=== PATIENT | female | born 1955 | race Caucasian/White ===

== ENCOUNTER 2018-08-21 12:27 | Emergency (ER) | payer MEDICARE, BC ==
[2018-08-21] MEDS ORDERED: Sodium Chloride 0.9% 2.5 ML Syringe FLUSH PRN (12:57)
[2018-08-21] MEDS ORDERED: Sodium Chloride 0.9% 10 ML Syringe FLUSH PRN (12:57)
--- NOTE | 2018-08-21 13:07 | EDM.PDOC ---
ED HPI GENERAL MEDICAL PROBLEM - General Chief Complaint: Cardiovascular Problem Stated Complaint: HIGH BLOOD PRESSURE ISSUE Time Seen by Provider: 08/21/18 12:56 Source of Information: Reports: Patient History Limitations: Reports: No Limitations - History of Present Illness INITIAL COMMENTS - FREE TEXT/NARRATIVE: HISTORY AND PHYSICAL: History of present illness: Patient is a 63-year-old female here with complaint of hypotension. She states she has not been feeling well the last 3 days has had a headache on and off. She reports that she took her blood pressure this morning and it was 195/120. She took an extra dose of one of her blood pressure medications, is currently on lisinopril, metoprolol, and amlodipine. She states after taking her blood pressure she was feeling a little short of breath but admits that she was very anxious. She denies any chest pain, shortness of breath, headache or nausea, vomiting, diarrhea, abdominal pain, urinary symptoms at this time. Review of systems: As per history of present illness and below otherwise all systems reviewed and negative. Past medical history: As per history of present illness and as reviewed below otherwise noncontributory. Surgical history: As per history of present illness and as reviewed below otherwise noncontributory. Social history: No reported history of drug or alcohol abuse. Family history: As per history of present illness and as reviewed below otherwise noncontributory. Physical exam: General: Patient anxious appearing but sitting comfortably in no acute distress and nontoxic appearing HEENT: Atraumatic, normocephalic, pupils reactive, negative for conjunctival pallor or scleral icterus, mucous membranes moist, throat clear, neck supple, nontender, trachea midline. No meningeal signs. Lungs: Clear to auscultation, breath sounds equal bilaterally, chest nontender. Heart: S1S2, regular, negative for clicks, rubs, or overt murmur. Abdomen: Soft, nondistended, nontender. Negative for masses or hepatosplenomegaly. Negative for costovertebral tenderness. Pelvis: Stable nontender. Genitourinary: Deferred. Rectal: Deferred. Extremities: Atraumatic, negative for cords or calf pain. Neurovascular unremarkable. Neuro: Awake, alert, oriented. Cranial nerves II through XII unremarkable. Cerebellum unremarkable. Motor and sensory unremarkable throughout. Exam nonfocal. Notes: 1410 - BP 122/66 after labetolol. She states she is feeling much better and no headache. Diagnostics: CBC, CMP, troponin, EKG, UA Therapeutics: Labetolol 20mg IV Prescriptions: None Impression: Hypertension Plan: 1. Continue BP medication as discussed 2. Follow up with primary care provider, please call to schedule an appointment Thursday. 3. Return to ED as needed as discussed Definitive disposition and diagnosis as appropriate pending reevaluation and review of above. headache Pain Score (Numeric/FACES): 2 - Related Data Allergies Allergy/AdvReac Type Severity Reaction Status Date / Time No Known Allergies Allergy Verified 03/10/14 10:35 Home Meds: Home Meds Aspirin [Adult Low Dose Aspirin EC] 81 mg PO DAILY 09/11/15 [History] Dextroamphetamine/Amphetamine [Dextroamp-Amphet ER] 30 mg PO BID 09/11/15 [ History] Empagliflozin/Linagliptin [Glyxambi 25 mg-5 mg Tablet] 1 tab PO DAILY 09/11/15 [ History] Furosemide [Lasix] 40 mg PO DAILY PRN 09/11/15 [History] Metoprolol Tartrate 50 mg PO BID 09/11/15 [History] amLODIPine [Norvasc] 5 mg PO DAILY 09/11/15 [History] atorvaSTATin [Lipitor] 20 mg PO DAILY 09/11/15 [History] metFORMIN HCl [Metformin HCl] 500 mg PO BIDMEALS 09/11/15 [History] Albuterol [Ventolin HFA] 1 - 2 puff INH Q4H PRN 09/13/15 [History] Estrogens, Conjugated [Premarin Vaginal Crm] 1 applic VAG ASDIRECTED 09/13/15 [ History] Lisinopril 40 mg PO DAILY 09/13/15 [History] oxyCODONE HCl/Acetaminophen [Percocet 7.5-325 mg Tablet] 1 each PO Q4H PRN #30 tablet 09/14/15 [Rx] Past Medical History HEENT History: Reports: Cataract Cardiovascular History: Reports: High Cholesterol, Hypertension Respiratory History: Reports: Asthma Other Respiratory History: occas uses inhaler Gastrointestinal History: Reports: GERD Other Gastrointestinal History: takes prolesac for heartburn Genitourinary History: Reports: UTI, Recurrent 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: hx of toxemia during Musculoskeletal History: Reports: Back Pain, Chronic, Fracture Other Musculoskeletal History: right ankle fx, states back pain is from pelvic organ prolapse Neurological History: Reports: Other (See Below) Other Neuro History: Narcolepsy Endocrine/Metabolic History: Reports: Diabetes, Type II, Obesity/BMI 30+ Dermatologic History: Reports: Other (See Below) Other Dermatologic History: has dark patches on skin - Infectious Disease History Infectious Disease History: Reports: Chicken Pox, Influenza - Past Surgical History HEENT Surgical History: Reports: Cataract Surgery GI Surgical History: Reports: EGD, Hernia, Abdominal Female Surgical History: Reports: Section, Hysterectomy, Salpingo- Oophorectomy, Other (See Below) Musculoskeletal Surgical History: Reports: Shoulder Surgery Social & Family History - Family History Cardiac: Reports: High Cholesterol, Hypertension OBGYN: Reports: Endocrine/Metabolic: Reports: Diabetes, type II ED ROS GENERAL - Review of Systems Review Of Systems: ROS reveals no pertinent complaints other than HPI. ED EXAM, GENERAL - Physical Exam Exam: See Below (See dictation) Course - Vital Signs Last Recorded V/S: Last Vital Signs Temp 97.9 F 08/21/18 14:09 Pulse 77 08/21/18 14:09 Resp 14 08/21/18 14:09 BP 122/63 08/21/18 14:09 Pulse Ox 94 L 08/21/18 14:09 - Orders/Labs/Meds Orders: Active Orders 24 hr Category Date Time Status EKG Documentation Completion [RC] STAT Care 08/21/18 12:57 Active COMPREHENSIVE METABOLIC PN,CMP [CHEM] Stat Lab 08/21/18 13:35 Received TROPONIN I [CHEM] Stat Lab 08/21/18 13:35 Received UA RFX CORDELIA AND CULT IF INDIC [URIN] Stat Lab 08/21/18 12:57 Ordered Sodium Chloride 0.9% [Saline Flush] Med 08/21/18 12:57 Active 10 ml FLUSH ASDIRECTED PRN Sodium Chloride 0.9% [Saline Flush] Med 08/21/18 12:57 Active 2.5 ml FLUSH ASDIRECTED PRN Saline Lock Insert [OM.PC] Stat Oth 08/21/18 12:57 Ordered Medication Orders Sodium Chloride (Saline Flush) 10 ml FLUSH ASDIRECTED PRN PRN Reason: Keep Vein Open Sodium Chloride (Saline Flush) 2.5 ml FLUSH ASDIRECTED PRN PRN Reason: Keep Vein Open Labs: Laboratory Tests 08/21/18 Range/Units 13:35 WBC 8.71 (4.0-11.0) K/uL RBC 4.69 (4.30-5.90) M/uL Hgb 15.2 (12.0-16.0) g/dL Hct 45.0 (36.0-46.0) % MCV 95.9 (80.0-98.0) fL MCH 32.4 H (27.0-32.0) pg MCHC 33.8 (31.0-37.0) g/dL RDW Std Deviation 47.2 (28.0-62.0) fl RDW Coeff of Chen 14 (11.0-15.0) % Plt Count 242 (150-400) K/uL MPV 10.40 (7.40-12.00) fL Neut % (Auto) 71.0 (48.0-80.0) % Lymph % (Auto) 17.7 (16.0-40.0) % [place] % (Auto) 8.4 (0.0-15.0) % Eos % (Auto) 2.1 (0.0-7.0) % Baso % (Auto) 0.8 (0.0-1.5) % Neut # (Auto) 6.2 H (1.4-5.7) K/uL Lymph # (Auto) 1.5 (0.6-2.4) K/uL [place] # (Auto) 0.7 (0.0-0.8) K/uL Eos # (Auto) 0.2 (0.0-0.7) K/uL Baso # (Auto) 0.1 (0.0-0.1) K/uL Nucleated RBC % 0.0 /100WBC Nucleated RBCs # 0 K/uL Meds: Medications Generic Name Dose Route Start Last Admin Trade Name Freq PRN Reason Stop Dose Admin Sodium Chloride 10 ml 08/21/18 12:57 Saline Flush FLUSH ASDIRECTED PRN Keep Vein Open Sodium Chloride 2.5 ml 08/21/18 12:57 Saline Flush FLUSH ASDIRECTED PRN Keep Vein Open Discontinued Medications Generic Name Dose Route Start Last Admin Trade Name Freq PRN Reason Stop Dose Admin Labetalol HCl 20 mg 08/21/18 13:21 08/21/18 13:33 Normodyne IVPUSH 08/21/18 13:22 20 mg NOW ONE Administration Protocol Departure - Departure Time of Disposition: 14:20 Disposition: Home, Self-Care 01 Condition: Good Clinical Impression: Hypertension Referrals: PCP,None [Primary Care Provider] - Forms: ED Department Discharge Additional Instructions: The following information is given to patients seen in the emergency department who are being discharged to home. This information is to outline your options for follow-up care. We provide all patients seen in our emergency department with a follow-up referral. The need for follow-up, as well as the timing and circumstances, are variable depending upon the specifics of your emergency department visit. If you don't have a primary care physician on staff, we will provide you with a referral. We always advise you to contact your personal physician following an emergency department visit to inform them of the circumstance of the visit and for follow-up with them and/or the need for any referrals to a consulting specialist. The emergency department will also refer you to a specialist when appropriate. This referral assures that you have the opportunity for follow-up care with a specialist. All of these measure are taken in an effort to provide you with optimal care, which includes your follow-up. Under all circumstances we always encourage you to contact your private physician who remains a resource for coordinating your care. When calling for follow-up care, please make the office aware that this follow-up is from your recent emergency room visit. If for any reason you are refused follow-up, please contact the [facility] Emergency Department at and asked to speak to the emergency department charge nurse. [facility] Primary [facility] [address] [place] [id number] 1. Continue BP medication as discussed 2. Follow up with primary care provider, please call to schedule an appointment Thursday morning. 3. Return to ED as needed as discussed - My Orders Last 24 Hours: My Active Orders 08/21/18 12:57 EKG Documentation Completion [RC] STAT UA RFX CORDELIA AND CULT IF INDIC [URIN] Stat Sodium Chloride 0.9% [Saline Flush] 10 ml FLUSH ASDIRECTED PRN Sodium Chloride 0.9% [Saline Flush] 2.5 ml FLUSH ASDIRECTED PRN Saline Lock Insert [OM.PC] Stat 08/21/18 13:35 COMPREHENSIVE METABOLIC PN,CMP [CHEM] Stat TROPONIN I [CHEM] Stat - Assessment/Plan Last 24 Hours: My Active Orders 08/21/18 12:57 EKG Documentation Completion [RC] STAT UA RFX CORDELIA AND CULT IF INDIC [URIN] Stat Sodium Chloride 0.9% [Saline Flush] 10 ml FLUSH ASDIRECTED PRN Sodium Chloride 0.9% [Saline Flush] 2.5 ml FLUSH ASDIRECTED PRN Saline Lock Insert [OM.PC] Stat 08/21/18 13:35 COMPREHENSIVE METABOLIC PN,CMP [CHEM] Stat TROPONIN I [CHEM] Stat
[2018-08-21] MEDS ORDERED: Labetalol 20 MG/4 ML Syringe IVPUSH ONE (13:21)
[2018-08-21 14:11] VITALS: BP 122/63
[2018-08-21 14:32] LABS: CHLORIDE,CL 103 mmol/L (98-107); SODIUM,NA 139 mmol/L (136-145)
== END 2018-08-21 14:40 | disposition home or self-care (01) ==
LOC: MW.ED 12:27
DX: I10 Essential (primary) hypertension (principal); E11.9 Type 2 diabetes mellitus without complications; E66.9 Obesity, unspecified
CPT/HCPCS: 36415; 80053; 84484; 85025; 93005; 96374; 99284; J3490; 99283

== ENCOUNTER 2019-06-16 11:19 | Day surgery (SDC) | payer MEDICARE, BC ==
[~2019-06-16 11:19] MED LIST: Lactated Ringers 1,000 ML IV SCH; Sodium Chloride 0.9% 10 ML SDV IV PRN; Sodium Chloride 0.9% 10 ML Syringe FLUSH PRN; Sodium Chloride 0.9% 2.5 ML Syringe FLUSH PRN
--- NOTE | 2019-06-16 12:00 | PCM.PREANE ---
Preanesthetic Assessment - Anesthesia/Transfusion/Family Hx Anesthesia History: Prior Anesthesia Without Reaction Family History of Anesthesia Reaction: No Transfusion History: No Prior Transfusion(s) Intubation History: Unknown - Review of Systems General: No Symptoms Pulmonary: No Symptoms Cardiovascular: No Symptoms Gastrointestinal: No Symptoms, Other (h/o colon polyps '05, screening colonoscopy) Neurological: No Symptoms Other: Reports: None - Physical Assessment Height: 5 ft 7 in Weight: 98.883 kg ASA Class: 3 Mental Status: Alert & Oriented x3 Airway Class: Mallampati = 2 Dentition: Reports: Normal Dentition Thyro-Mental Finger Breadths: 3 Mouth Opening Finger Breadths: 3 ROM/Head Extension: Full Lungs: Clear to Auscultation, Normal Respiratory Effort Cardiovascular: Regular Rate, Regular Rhythm - Allergies Allergies/Adverse Reactions: Allergies Allergy/AdvReac Type Severity Reaction Status Date / Time tramadol Allergy Nausea and Verified 06/13/19 15:41 Vomiting - Blood Blood Available: No - Anesthesia Plan Pre-Op Medication Ordered: None - Acknowledgements Anesthesia Type Planned: MAC Pt an Appropriate Candidate for the Planned Anesthesia: Yes Alternatives and Risks of Anesthesia Discussed w Pt/Guardian: Yes Pt/Guardian Understands and Agrees with Anesthesia Plan: Yes PreAnesthesia Questionnaire HEENT History: Reports: Cataract Cardiovascular History: Reports: High Cholesterol, Hypertension Respiratory History: Reports: Asthma Other Respiratory History: has not used inhalers for many years Gastrointestinal History: Reports: Colon Polyp, GERD Other Gastrointestinal History: takes prolesac for heartburn Genitourinary History: Reports: UTI, Recurrent DIRECTOR OF CRITICAL CARE History: Reports: Other OB/BYN History: hx of toxemia during Musculoskeletal History: Reports: Fracture, Gout Other Musculoskeletal History: hx fx right ankle Neurological History: Reports: Other (See Below) Other Neuro History: Narcolepsy Psychiatric History: Reports: ADD, Depression, Other (See Below) Other Psychiatric History: Narcolepsy Endocrine/Metabolic History: Reports: Diabetes, Type II, Hypothyroidism, Obesity /BMI 30+ Dermatologic History: Reports: Other (See Below) Other Dermatologic History: has dark patches on skin - Infectious Disease History Infectious Disease History: Reports: Chicken Pox, Influenza - Past Surgical History Head Surgeries/Procedures: Reports: None HEENT Surgical History: Reports: Cataract Surgery GI Surgical History: Reports: Colonoscopy, Hernia, Inguinal Female Surgical History: Reports: Section, Hysterectomy, Salpingo- Oophorectomy, Tubal Ligation, Other (See Below) Other Female Surgeries/Procedures: bladder neck suspension Musculoskeletal Surgical History: Reports: Other (See Below) Other Musculoskeletal Surgeries/Procedures:: left TSA, hx of Tarsal Tunnel release- right - SUBSTANCE USE Smoking Status *Q: Former Smoker Tobacco Use Within Last Twelve Months: No Recreational Drug Use History: No - HOME MEDS Home Medications: Home Meds Aspirin [Adult Low Dose Aspirin EC] 81 mg PO DAILY 09/11/15 [History] Dextroamphetamine/Amphetamine [Dextroamp-Amphet ER] 30 mg PO BID 09/11/15 [ History] Furosemide [Lasix] 40 mg PO DAILY PRN 09/11/15 [History] amLODIPine [Norvasc] 5 mg PO BEDTIME 09/11/15 [History] atorvaSTATin [Lipitor] 20 mg PO DAILY 09/11/15 [History] metFORMIN HCl [Metformin HCl] 500 mg PO BIDMEALS 09/11/15 [History] Estrogens, Conjugated [Premarin Vaginal Crm] 1 applic VAG DAILY 09/13/15 [ History] Lisinopril 40 mg PO DAILY 09/13/15 [History] DULoxetine HCl [Cymbalta] 30 mg PO DAILY 06/13/19 [History] Empagliflozin [Jardiance] 25 mg PO ACBREAKFAST 06/13/19 [History] Levothyroxine Sodium [Euthyrox] 50 mg PO QAM 06/13/19 [History] Metoprolol Succinate 100 mg PO QAM 06/13/19 [History] Omeprazole Magnesium [Prilosec Otc] 20 mg PO DAILY 06/13/19 [History] cloNIDine [Catapres] 0.1 mg PO BID 06/13/19 [History] - CURRENT (IN HOUSE) MEDS Current Meds: Current Medications Lactated Ringer's (Ringers, Lactated) 1,000 mls @ 125 mls/hr IV ASDIRECTED LD Sodium Chloride (Saline Flush) 10 ml FLUSH ASDIRECTED PRN PRN Reason: Keep Vein Open Sodium Chloride (Saline Flush) 2.5 ml FLUSH ASDIRECTED PRN PRN Reason: Keep Vein Open Sodium Chloride (Saline Flush) 10 ml FLUSH ASDIRECTED PRN PRN Reason: Keep Vein Open Sodium Chloride (Saline Flush) 2.5 ml FLUSH ASDIRECTED PRN PRN Reason: Keep Vein Open Sodium Chloride (Normal Saline) 10 ml IV ASDIRECTED PRN PRN Reason: IV Use
[2019-06-16] MEDS ORDERED: Lidocaine 2% 5 ML SDV ONE (13:03)
[2019-06-16] MEDS ORDERED: Propofol 200 MG/20 ML SDV ONE (13:03)
[2019-06-16 14:29] VITALS: BP 113/70; PULSE 62
--- NOTE | 2019-06-16 14:29 | PCM.POSTAN ---
POST ANESTHESIA ASSESSMENT - MENTAL STATUS Mental Status: Alert, Oriented - VITAL SIGNS Vital Signs: Last Vital Signs Temp 37.4 C 06/16/19 14:18 Pulse 66 06/16/19 14:23 Resp 14 06/16/19 14:23 BP 101/47 L 06/16/19 14:23 Pulse Ox 95 06/16/19 14:23 - RESPIRATORY Respiratory Status: Respiratory Rate WNL, Airway Patent, O2 Saturation Stable - CARDIOVASCULAR CV Status: Pulse Rate WNL, Blood Pressure Stable - GASTROINTESTINAL GI Status: No Symptoms - PAIN Pain Score: 0 - POST OP HYDRATION Hydration Status: Adequate & Stable - OBSERVATIONS Free Text/Narrative:: no anesthesia problems
--- NOTE | 2019-06-16 14:31 | PCM.OPNOTE ---
- General Post-Op/Procedure Note Date of Surgery/Procedure: 06/16/19 Operative Procedure(s): Screening colonoscopy Findings: Diverticulosis in sigmoid colon Pre Op Diagnosis: History of colon polyps Post-Op Diagnosis: diverticulosis Anesthesia Technique: GABRIELLA Primary Surgeon: Kayla Mack Condition: Good
--- NOTE | 2019-06-16 14:59 | PCM48HPAN ---
Post Anesthesia Note - EVALUATION WITHIN 48HRS OF ANESTHETIC Vital Signs in Normal Range: Yes Patient Participated in Evaluation: Yes Respiratory Function Stable: Yes Airway Patent: Yes Cardiovascular Function Stable: Yes Hydration Status Stable: Yes Pain Control Satisfactory: Yes Nausea and Vomiting Control Satisfactory: Yes Mental Status Recovered: Yes Vital Signs: Last Vital Signs Temp 37.4 C 06/16/19 14:18 Pulse 62 06/16/19 14:28 Resp 16 06/16/19 14:28 BP 113/70 06/16/19 14:28 Pulse Ox 95 06/16/19 14:28 - COMMENTS/OBSERVATIONS Free Text/Narrative:: no anesthesia problems
--- NOTE | 2019-06-16 15:44 | OR ---
SURGEON: KAYLA MACK MD DATE OF PROCEDURE: 06/16/2019 PREOPERATIVE DIAGNOSIS: History of colon polyps. POSTOPERATIVE DIAGNOSIS: Diverticulosis. PROCEDURE PERFORMED: Screening colonoscopy. PRIMARY SURGEON: Kayla Mack MD. ANESTHESIA: MAC. INSTRUMENT USED: Olympus colonoscope. EXTENT OF EXAM: To the cecum. PREPARATION: Good. LIMITATIONS: None. INDICATION FOR EXAMINATION: The patient is a 64-year-old female who is overdue for repeat colonoscopy. Her last one was in 2006 and she was found at that time to have colon polyps. The patient and I discussed the procedure, expected perioperative course, and risks including bleeding, infection, or damage to surrounding structures including perforation. The patient verbalized understanding and wishes to proceed. PROCEDURE IN DETAIL: The patient was brought into the endoscopy suite and placed in the left lateral decubitus position. A time-out was completed verifying the patient's name, age, date of , allergies, and procedure to be performed. Monitored anesthesia care was induced and continuous oxygen was provided via nasal cannula throughout the procedure. After adequate sedation was achieved, a digital rectal exam was performed. This exam was within normal limits. A well-lubricated colonoscope was inserted in the rectum and advanced under direct visualization to the level of the cecum. The cecum was identified by both visual and anatomic landmarks. A photograph was taken of the cecal cap; however, I was unable to retroflex the scope within the cecum due to looping of the scope more proximally. The scope was then fully withdrawn while examining the color, texture, anatomy, and integrity of the mucosa from the cecum to the anal canal. A photograph was taken of the terminal ileum. The patient had scattered diverticula within the sigmoid colon. No polyps were identified. The scope was then brought into the rectum and retroflexed to allow visualization of the anal canal opening. This appeared normal and a photograph was taken. The scope was then straightened out and fully withdrawn. The cecum to anus time was 9 minutes. The patient tolerated the procedure well and was transferred to the PACU in stable condition. ENDOSCOPIC DIAGNOSIS: Diverticulosis. RECOMMENDATIONS: Follow up in clinic in 2 weeks. NOLA CERVANTES /[id number]
== END 2019-06-16 14:55 | disposition home or self-care (01) ==
LOC: MW.SDS 11:19
PROVIDERS: ATTEND Surgery
DX: Z12.11 Encounter for screening for malignant neoplasm of colon (principal); K57.30 Diverticulosis of large intestine without perforation or abscess without bleeding; E78.5 Hyperlipidemia, unspecified; M10.9 Gout, unspecified; I10 Essential (primary) hypertension; E03.9 Hypothyroidism, unspecified; E11.9 Type 2 diabetes mellitus without complications; K21.9 Gastro-esophageal reflux disease without esophagitis; M19.011 Primary osteoarthritis, right shoulder; J45.909 Unspecified asthma, uncomplicated; F32.9 Major depressive disorder, single episode, unspecified; E66.9 Obesity, unspecified; Z86.010 Personal history of colon polyps; Z88.5 Allergy status to narcotic agent; Z79.899 Other long term (current) drug therapy; Z79.82 Long term (current) use of aspirin; Z79.84 Long term (current) use of oral hypoglycemic drugs; Z87.891 Personal history of nicotine dependence; Z68.33 Body mass index [BMI] 33.0-33.9, adult
CPT/HCPCS: G0121; J2001; J2704; J7120

== ENCOUNTER 2021-10-06 22:11 | Emergency (ER) | payer BC, MEDICARE ==
[2021-10-06] MEDS ORDERED: Iopamidol 755 MG/ML 500 ML Multipack Bottle IVPUSH ONE (22:29)
[2021-10-06 22:53] LABS: BLOOD UREA NITROGEN,BUN 28 mg/dL (7.0-18.0); CARBON DIOXIDE,CO2 26.1 mmol/L (21.0-32.0); CHLORIDE,CL 100 mmol/L (98-107); GLUCOSE RANDOM 132 mg/dL (74-106); POTASSIUM,K 4.2 mmol/L (3.5-5.1); SODIUM,NA 140 mmol/L (136-145)
[2021-10-06 22:54] LABS: ESTIMATED GFR 34.5 ml/min
[2021-10-06] MEDS ORDERED: Ondansetron 4 MG/2 ML SDV IVPUSH ONE (22:56)
[2021-10-06] MEDS ORDERED: Aspirin 81 MG Tab.Chew PO ONE (23:11)
[2021-10-07] MEDS ORDERED: Sodium Chloride 0.9% 1,000 ML IV ONE (00:22)
[2021-10-07] MEDS ORDERED: Sodium Chloride 0.9% 1,000 ML IV SCH (00:30)
[2021-10-07 01:13] VITALS: BP 144/81; PULSE 92
== END 2021-10-07 01:22 ==
LOC: MW.ED 22:11
DX: G45.9 Transient cerebral ischemic attack, unspecified (principal); E78.00 Pure hypercholesterolemia, unspecified; I10 Essential (primary) hypertension; E11.9 Type 2 diabetes mellitus without complications; E03.9 Hypothyroidism, unspecified; K21.9 Gastro-esophageal reflux disease without esophagitis; E66.9 Obesity, unspecified; Z68.30 Body mass index [BMI] 30.0-30.9, adult; Z88.5 Allergy status to narcotic agent; Z79.82 Long term (current) use of aspirin; Z79.899 Other long term (current) drug therapy
CPT/HCPCS: 36415; 70450; 70496; 70498; 71045; 80053; 81001; 82947; 84484; 85025; 93005; 96374; 99285; A9270; J2405; J7030; Q9967; 93010

== ENCOUNTER 2023-05-07 09:45 | Inpatient (IN) | payer MEDICARE ==
[2023-05-07] MEDS ORDERED: Sodium Chloride 0.9% 1,000 ML IV ONE ×2 (10:12→12:33)
[2023-05-07] MEDS ORDERED: Morphine 4 MG/ML Syringe IVPUSH ONE (10:12)
[2023-05-07] MEDS ORDERED: Ondansetron 4 MG/2 ML SDV IVPUSH ONE (10:12)
[2023-05-07 10:17] LABS: HEMATOCRIT 40.3 % (37.0-47.0); MEAN CORPUSCULAR HEMOGLOBIN 34.1 pg (28.0-32.0); MEAN CORPUSCULAR HGB CONC 34.7 g/dL (32.0-36.0); MEAN CORPUSCULAR VOLUME 98.1 fL (83.0-99.0); MEAN PLATELET VOLUME 9.8 fL (9.4-12.3); PLATELET COUNT,PLT 195 K/uL (150-400); RED BLOOD CELL COUNT 4.11 M/uL (4.10-5.30); WHITE BLOOD CELL COUNT,WBC 15.76 K/uL (3.9-11.3)
[2023-05-07 10:41] LABS: APPEARANCE,URINE CLOUDY; GLUCOSE,URINE NEGATIVE (NEGATIVE); KETONES,URINE NEGATIVE (NEGATIVE); LEUKOCYTE ESTERASE,URINE MODERATE (NEGATIVE); NITRITE,URINE NEGATIVE (NEGATIVE); OCCULT BLOOD,URINE SMALL (NEGATIVE); PROTEIN,URINE 100 mg/dL (NEGATIVE); UROBILINOGEN,URINE 0.2 EU/dL (<2.0)
[2023-05-07 10:41] LABS: BAND ABSOLUTE MAN 0.6; BAND PERCENT MAN 4 %; BASOPHILS ABSOLUTE MAN 0.2 (0.0-0.1); BASOPHILS PERCENT MAN 1 % (0.0-1.5); LYMPHOCYTES ABSOLUTE MAN 0.9 (0.6-2.4); LYMPHOCYTES PERCENT MAN 6 % (16.0-40.0); METAMYELOCYTE ABSOLUTE MAN 0.2; METAMYELOCYTE PERCENT MAN 1 %; MONOCYTES ABSOLUTE MAN 0.9 (0.0-0.8); MONOCYTES PERCENT MAN 6 % (0.0-15.0); SEG NEUTROPHILS ABSOLUTE MAN 12.9 (1.4-5.7); SEG NEUTROPHILS PERCENT MAN 82 % (48.0-80.0)
[2023-05-07 10:45] LABS: A/G RATIO 0.8 (0.9-1.6); ALBUMIN 3.4 g/dL (3.4-5.0); BILIRUBIN TOTAL 0.7 mg/dL (0.2-1.0); CALCIUM 9.2 mg/dL (8.5-10.1); CARBON DIOXIDE,CO2 29.3 mmol/L (21.0-32.0); CREATININE 1.2 mg/dL (0.6-1.0); EST CRCL DRUG DOSING (CG) 43.03 mL/min; POTASSIUM,K 3.1 mmol/L (3.5-5.1); PROTEIN TOTAL,TP 7.8 g/dL (6.4-8.2)
[2023-05-07 10:48] LABS: LACTIC ACID 1.5 mmol/L (0.4-2.0)
[2023-05-07 10:51] LABS: BILIRUBIN,URINE SMALL (NEGATIVE); COLOR,URINE YELLOW
[2023-05-07 10:53] LABS: BACTERIA,URINE 1+ (NEGATIVE); EPITHELIAL CELLS,URINE OCCASIONAL (NONE-FEW); WBC,URINE TO NUMEROUS TO COUNT (0-5/HPF)
[2023-05-07] MEDS ORDERED: cefTRIAXone 1 GM in Sodium Chloride 0.9% 50 ML IV ONE (10:58)
[2023-05-07] MEDS ORDERED: Acetaminophen 500 MG Tab PO ONE (11:32)
[2023-05-07] MEDS ORDERED: Iopamidol 755 MG/ML 500 ML Multipack Bottle IVPUSH ONE (11:35)
[2023-05-07] MEDS ORDERED: Potassium Chloride 20 MEQ Tab.ER PO ONE (11:42)
[2023-05-07] MEDS ORDERED: Ketorolac 30 MG/ML SDV IVPUSH ONE (12:33)
[2023-05-07] MEDS ORDERED: Sodium Chloride 0.9% 10 ML Syringe FLUSH PRN (13:30)
[2023-05-07] MEDS ORDERED: Docusate Sodium 100 MG Cap PO PRN (13:30)
[2023-05-07] MEDS ORDERED: Polyethylene Glycol 3350 Powder 17 GM Packet PO PRN (13:30)
[2023-05-07] MEDS ORDERED: Sodium Chloride 0.9% 2.5 ML Syringe FLUSH PRN (13:30)
[2023-05-07 13:46] LABS: HEMOGLOBIN A1C 6.4 %
[2023-05-07] MEDS ORDERED: Glucagon,Human Recombinant 1 MG Vial IM PRN (14:14)
[2023-05-07] MEDS ORDERED: 50% Dextrose in Water 50 ML Syringe IVPUSH PRN (14:14)
[2023-05-07] MEDS ORDERED: Naloxone 0.4 MG/ML SDV IVPUSH PRN (14:15)
[2023-05-07] MEDS: Potassium Chloride 20 MEQ in Premix Bag 1 BAG IV SCH ×2 (14:31→18:36)
[2023-05-07] MEDS: Sodium Chloride 0.9% 1,000 ML IV SCH ×2 (14:31→23:00)
[2023-05-07] MEDS: Ondansetron 4 MG/2 ML SDV IVPUSH PRN (14:32)
[2023-05-07] MEDS ORDERED: Magnesium Sulfate/Water 4 GM in Premix Bag 1 BAG IV ONE (15:08)
[2023-05-07] MEDS: Insulin Aspart 100 Units/ML 3 ML Pen SUBCUT SCH (16:16)
[2023-05-07] MEDS: Morphine 4 MG/ML Syringe IVPUSH PRN (19:33)
[2023-05-07] MEDS ORDERED: atorvaSTATin 20 MG Tab PO SCH (21:00)
[2023-05-07] MEDS: Acetaminophen 325 MG Tab PO PRN (23:11)
[2023-05-07] MEDS ORDERED: amLODIPine 5 MG Tab PO SCH (23:28)
[2023-05-08] MEDS: Piperacillin/Tazobactam 4.5 GM in Sodium Chloride 0.9% 100 ML IV SCH ×4 (02:39→20:02)
[2023-05-08] MEDS: Acetaminophen 325 MG Tab PO PRN ×2 (06:43→20:08)
[2023-05-08 06:46] LABS: BASOPHILS ABSOLUTE AUTO 0.04 K/uL (0.00-0.20); BASOPHILS PERCENT AUTO 0.5 % (0.0-1.0); EOSINOPHILS ABSOLUTE AUTO 0.03 K/uL (0.00-0.45); EOSINOPHILS PERCENT AUTO 0.4 % (0.0-6.0); HEMATOCRIT 33.5 % (37.0-47.0); HEMOGLOBIN 11.5 g/dL (12.0-16.0); IMMATURE GRAN ABSOLUTE AUTO 0.04 K/uL (0.00-0.05); IMMATURE GRAN PERCENT AUTO 0.5 % (0.0-0.4); LYMPHOCYTES PERCENT AUTO 8.9 % (24.0-44.0); MEAN CORPUSCULAR HEMOGLOBIN 34.5 pg (28.0-32.0); MEAN CORPUSCULAR HGB CONC 34.3 g/dL (32.0-36.0); MEAN CORPUSCULAR VOLUME 100.6 fL (83.0-99.0); MEAN PLATELET VOLUME 10.4 fL (9.4-12.3); MONOCYTES ABSOLUTE AUTO 1.14 K/uL (0.00-0.80); MONOCYTES PERCENT AUTO 14.4 % (0.0-8.0); NEUTROPHILS ABSOLUTE AUTO 5.94 K/uL (1.80-7.70); NEUTROPHILS PERCENT AUTO 75.3 % (41.0-71.0); PLATELET COUNT,PLT 145 K/uL (150-400); RED BLOOD CELL COUNT 3.33 M/uL (4.10-5.30); WHITE BLOOD CELL COUNT,WBC 7.89 K/uL (3.9-11.3)
[2023-05-08 07:06] LABS: CALCIUM 8.5 mg/dL (8.5-10.1); EST CRCL DRUG DOSING (CG) 51.63 mL/min; MAGNESIUM 2.1 mg/dL (1.8-2.4); POTASSIUM,K 4.2 mmol/L (3.5-5.1)
[2023-05-08] MEDS ORDERED: Levothyroxine 50 MCG Tab PO SCH (07:30)
[2023-05-08] MEDS: Insulin Aspart 100 Units/ML 3 ML Pen SUBCUT SCH ×3 (07:38→18:19)
[2023-05-08] MEDS: Sodium Chloride 0.9% 1,000 ML IV SCH ×3 (08:11→23:03)
[2023-05-08] MEDS ORDERED: Metoprolol Succinate 100 MG Tab.ER PO SCH (09:00)
[2023-05-08] MEDS: Carvedilol 12.5 MG Tab PO SCH ×2 (09:00→18:21)
[2023-05-08] MEDS ORDERED: atorvaSTATin 20 MG Tab PO SCH (09:00)
[2023-05-08] MEDS: Omeprazole 20 MG Cap.CR PO SCH (09:04)
[2023-05-08] MEDS: Lisinopril 10 MG Tab PO SCH (09:04)
[2023-05-08] MEDS: DULoxetine 30 MG Cap PO SCH (09:04)
[2023-05-08] MEDS: ARMODAFINIL 150 MG PO SCH (09:06)
[2023-05-08] MEDS: Aspirin 81 MG Tab.EC PO SCH (09:06)
[2023-05-08] MEDS ORDERED: Ketorolac 30 MG/ML SDV IVPUSH ONE (10:16)
[2023-05-08] MEDS ORDERED: cefTRIAXone 1 GM in Sodium Chloride 0.9% 50 ML IV SCH (11:30)
[2023-05-08] MEDS: atorvaSTATin 40 MG Tab PO SCH (20:07)
[2023-05-08] MEDS: Morphine 4 MG/ML Syringe IVPUSH PRN (23:40)
[2023-05-09] MEDS: Piperacillin/Tazobactam 4.5 GM in Sodium Chloride 0.9% 100 ML IV SCH ×4 (01:56→20:05)
[2023-05-09] MEDS: Sodium Chloride 0.9% 1,000 ML IV SCH ×5 (03:48→21:42)
[2023-05-09] MEDS: Levothyroxine 75 MCG Tab PO SCH (07:09)
[2023-05-09 07:29] LABS: CALCIUM 8.3 mg/dL (8.5-10.1); CARBON DIOXIDE,CO2 29.2 mmol/L (21.0-32.0); EST CRCL DRUG DOSING (CG) 51.63 mL/min; MAGNESIUM 1.7 mg/dL (1.8-2.4); POTASSIUM,K 4.7 mmol/L (3.5-5.1)
[2023-05-09] MEDS: Insulin Aspart 100 Units/ML 3 ML Pen SUBCUT SCH ×3 (08:02→16:36)
[2023-05-09 08:06] LABS: BASOPHILS PERCENT AUTO 0.7 % (0.0-1.0); EOSINOPHILS PERCENT AUTO 2.1 % (0.0-6.0); HEMATOCRIT 33.4 % (37.0-47.0); HEMOGLOBIN 10.8 g/dL (12.0-16.0); MEAN CORPUSCULAR HEMOGLOBIN 33.4 pg (28.0-32.0); MEAN CORPUSCULAR HGB CONC 32.3 g/dL (32.0-36.0); MEAN CORPUSCULAR VOLUME 103.4 fL (83.0-99.0); MEAN PLATELET VOLUME 10.7 fL (9.4-12.3); MONOCYTES PERCENT AUTO 15.7 % (0.0-8.0); NEUTROPHILS PERCENT AUTO 71.2 % (41.0-71.0); PLATELET COUNT,PLT 155 K/uL (150-400); RED BLOOD CELL COUNT 3.23 M/uL (4.10-5.30)
[2023-05-09 08:07] LABS: BASOPHILS ABSOLUTE AUTO 0.04 K/uL (0.00-0.20); EOSINOPHILS ABSOLUTE AUTO 0.12 K/uL (0.00-0.45); IMMATURE GRAN ABSOLUTE AUTO 0.02 K/uL (0.00-0.05); IMMATURE GRAN PERCENT AUTO 0.3 % (0.0-0.4); LYMPHOCYTES ABSOLUTE AUTO 0.58 K/uL (1.00-4.80); MONOCYTES ABSOLUTE AUTO 0.91 K/uL (0.00-0.80); NEUTROPHILS ABSOLUTE AUTO 4.13 K/uL (1.80-7.70)
[2023-05-09] MEDS ORDERED: Magnesium Sulfate/Water 2 GM in Premix Bag 1 BAG IV ONE (08:16)
[2023-05-09] MEDS: Carvedilol 12.5 MG Tab PO SCH ×2 (09:00→16:39)
[2023-05-09] MEDS: Aspirin 81 MG Tab.EC PO SCH (09:00)
[2023-05-09] MEDS: DULoxetine 30 MG Cap PO SCH (09:00)
[2023-05-09] MEDS: Omeprazole 20 MG Cap.CR PO SCH (09:00)
[2023-05-09] MEDS: Lisinopril 10 MG Tab PO SCH (09:04)
[2023-05-09] MEDS: ARMODAFINIL 150 MG PO SCH (09:07)
[2023-05-09] MEDS: Ondansetron 4 MG/2 ML SDV IVPUSH PRN (16:32)
[2023-05-09] MEDS: atorvaSTATin 40 MG Tab PO SCH (20:08)
[2023-05-09] MEDS: Morphine 4 MG/ML Syringe IVPUSH PRN (20:10)
[2023-05-10] MEDS: Piperacillin/Tazobactam 4.5 GM in Sodium Chloride 0.9% 100 ML IV SCH ×2 (02:01→08:10)
[2023-05-10] MEDS: Morphine 4 MG/ML Syringe IVPUSH PRN (03:19)
[2023-05-10] MEDS: Sodium Chloride 0.9% 1,000 ML IV SCH (05:41)
[2023-05-10] MEDS: Levothyroxine 75 MCG Tab PO SCH (06:33)
[2023-05-10] MEDS: Insulin Aspart 100 Units/ML 3 ML Pen SUBCUT SCH (07:44)
[2023-05-10] MEDS: Aspirin 81 MG Tab.EC PO SCH (08:04)
[2023-05-10] MEDS: DULoxetine 30 MG Cap PO SCH (08:04)
[2023-05-10] MEDS: Omeprazole 20 MG Cap.CR PO SCH (08:05)
[2023-05-10] MEDS: Lisinopril 10 MG Tab PO SCH (08:05)
[2023-05-10] MEDS: Carvedilol 12.5 MG Tab PO SCH (08:07)
[2023-05-10] MEDS: ARMODAFINIL 150 MG PO SCH (08:16)
[2023-05-10] MEDS ORDERED: Levofloxacin 750 MG Tab PO SCH (09:22)
[2023-05-10 11:58] VITALS: BP 163/79; PULSE 59
== END 2023-05-10 11:50 | disposition home or self-care (01) | DRG 872 ==
LOC: MW.ED 09:45 → OBSVTOIN 12:53 → MW.MS 12:53
PROVIDERS: ADMIT Family Medicine; ATTEND Family Medicine
DX: K52.9 Noninfective gastroenteritis and colitis, unspecified (principal); N30.00 Acute cystitis without hematuria; A41.51 Sepsis due to Escherichia coli [E. coli]; N12 Tubulo-interstitial nephritis, not specified as acute or chronic; I10 Essential (primary) hypertension; E78.00 Pure hypercholesterolemia, unspecified; J45.909 Unspecified asthma, uncomplicated; K21.9 Gastro-esophageal reflux disease without esophagitis; M10.9 Gout, unspecified; F32.A Depression, unspecified; E66.9 Obesity, unspecified; F12.10 Cannabis abuse, uncomplicated; E03.9 Hypothyroidism, unspecified; R91.8 Other nonspecific abnormal finding of lung field; F98.8 Other specified behavioral and emotional disorders with onset usually occurring in childhood and adolescence; E87.6 Hypokalemia; G47.10 Hypersomnia, unspecified; E86.0 Dehydration; E11.9 Type 2 diabetes mellitus without complications; Z79.82 Long term (current) use of aspirin; Z79.890 Hormone replacement therapy; Z86.73 Personal history of transient ischemic attack (TIA), and cerebral infarction without residual deficits; Z79.899 Other long term (current) drug therapy; Z90.89 Acquired absence of other organs; Z88.8 Allergy status to other drugs, medicaments and biological substances; Z86.010 Personal history of colon polyps; Z87.81 Personal history of (healed) traumatic fracture; Z68.38 Body mass index [BMI] 38.0-38.9, adult; Z98.890 Other specified postprocedural states; Z87.19 Personal history of other diseases of the digestive system; Z90.710 Acquired absence of both cervix and uterus; Z90.722 Acquired absence of ovaries, bilateral; Z98.51 Tubal ligation status; Z82.49 Family history of ischemic heart disease and other diseases of the circulatory system; Z83.3 Family history of diabetes mellitus; Z79.84 Long term (current) use of oral hypoglycemic drugs; Z98.49 Cataract extraction status, unspecified eye
CPT/HCPCS: 36415; 71250; 74177; 80053; 81001; 83036; 83605; 83690; 83735; 85025; 87040 ×2; 87077; 87086; 87088 ×2; 87154; 87186 ×3; 96361; 96365; 96375; 96376; 99285; A9270 ×2; J0696; J1885; J2270; J2405; J3490; J7030 ×2; Q9967; 80048; 82947; 96366; 96367; 96368; 99222; 99232; 99239; 99284; G0378; J1815-GY; J2543; J3475; J3480